=== PATIENT | female | born 1930 | race Caucasian/White ===

== ENCOUNTER 2018-05-15 08:48 | Inpatient (IN) | payer MEDICARE, OTHER ==
[2018-05-15 10:22] LABS: ADD MAN DIFF? NO
[2018-05-15 10:24] LABS: BASOPHIL # 0.1 10^3/ul (0.0-0.1); BASOPHILS % 1.4 % (0.0-2.0); EOSINOPHILS # 0.3 10^3/ul (0.0-0.5); EOSINOPHILS % 6.1 % (0.0-7.0); HEMATOCRIT 38.6 % (37.0-47.0); HEMOGLOBIN 12.4 g/dl (12.0-16.0); LYMPHOCYTES # 1.2 10^3/ul (0.8-2.9); LYMPHOCYTES % 24.4 % (15.0-51.0); MEAN CORPUSCULAR HEMOGLOBIN 31.2 pg (29.0-33.0); MEAN CORPUSCULAR HGB CONC 32.1 g/dl (32.0-37.0); MEAN CORPUSCULAR VOLUME 97.2 fl (82.0-101.0); MEAN PLATELET VOLUME 9.6 fl (7.4-10.4); MONOCYTE # 0.5 10^3/ul (0.3-0.9); MONOCYTES % 9.7 % (0.0-11.0); NEUTROPHIL # 2.9 10^3/ul (1.6-7.5); PLATELET COUNT 216 10^3/UL (140-415); RED BLOOD COUNT 3.97 10^6/ul (4.20-5.40); RED CELL DISTRIBUTION WIDTH 13.9 % (11.5-14.5)
[2018-05-15 10:24] LABS: WHITE BLOOD COUNT 5.1 10^3/ul (4.8-10.8)
[2018-05-15 10:42] LABS: ALANINE AMINOTRANSFERASE 14 IU/L (13-69); ALBUMIN 3.9 g/dl (3.3-4.9); ALBUMIN/GLOBULIN RATIO 1.02; ALKALINE PHOSPHATASE 95 IU/L (42-121); ANION GAP 10 (8-16); ASPARTATE AMINO TRANSFERASE 26 IU/L (15-46); BILIRUBIN,TOTAL 0.4 mg/dl (0.2-1.3); BLOOD UREA NITROGEN 23 mg/dl (7-20); CALCIUM 9.3 mg/dl (8.4-10.2); CARBON DIOXIDE 28 mmol/L (21-31); CHLORIDE 110 mmol/L (97-110); CREATINE KINASE 47 IU/L (23-200); CREATININE 1.19 mg/dl (0.44-1.00); GLUCOSE 100 mg/dl (70-220); POTASSIUM 4.9 mmol/L (3.5-5.1); SODIUM 143 mmol/L (135-144); TOTAL PROTEIN 7.7 g/dl (6.1-8.1)
[2018-05-15 10:55] LABS: B-TYPE NATRIURETIC PEPTIDE 2680 PG/ML (0-450); CK INDEX 1.7; CK-MB 0.81 ng/ml (0.0-2.4)
[2018-05-15 10:57] LABS: TROPONIN-I < 0.012 ng/ml (0.000-0.120)
[2018-05-15] MEDS: CEFTRIAXONE 1 GM/50 ML (PMX) 50 ML IVPB (11:26)
[2018-05-15] MEDS: FUROSEMIDE 40 MG INJ IV ×2 (11:26→18:34)
[2018-05-15] MEDS: ALBUTEROL 0.083% (NEB) 2.5 MG/3 ML AMP NEB (11:35)
[2018-05-15] MEDS: IPRATROPIUM (NEB) 0.5 MG/2.5 ML AMP NEB (11:35)
[2018-05-15] MEDS: AZITHROMYCIN 500MG/NS (PMX) 250 ML IV (12:23)
[2018-05-15] MEDS ORDERED: ONDANSETRON 4 MG INJ IV ×2 (13:00→14:30)
[2018-05-15] MEDS ORDERED: HYDROCODONE/APAP (5/325) TAB PO (14:30)
[2018-05-15] MEDS ORDERED: hydrALAzine 20 MG INJ IV (14:30)
[2018-05-15] MEDS ORDERED: DOCUSATE SODIUM 100 MG CAP PO (14:30)
[2018-05-15] MEDS ORDERED: morphine 2 MG INJ IV (14:30)
[2018-05-15] MEDS ORDERED: NA PHOSPHATE/BIPHOS 133 ML ENEMA PR (14:30)
[2018-05-15] MEDS ORDERED: LORAZEPAM 2 MG INJ IV (14:30)
[2018-05-15] MEDS ORDERED: NACL 0.9% 3 ML SYG IV (14:30)
[2018-05-15] MEDS ORDERED: MAGNESIUM HYDROXIDE 30ML CUP PO (14:30)
[2018-05-15] MEDS ORDERED: NITROGLYCERIN (SL) 0.4 MG TAB SL (14:30)
[2018-05-15] MEDS ORDERED: ALBUTEROL/IPRATROPIUM (NEB) 3 ML AMP HHN (14:30)
[2018-05-15 15:11] LABS: FREE T4 (FREE THYROXINE) 1.48 ng/dl (0.85-1.93)
[2018-05-15] MEDS: LEVOFLOXACIN 750MG/D5W (PMX) 150 ML IVPB (15:48)
[2018-05-15] MEDS: APIXABAN 5 MG TABLET PO (20:54)
[2018-05-15] MEDS: ATORVASTATIN 10 MG TAB PO (20:54)
[2018-05-15] MEDS ORDERED: HEPARIN 5,000 UNIT/0.5 ML VIAL SC (21:00)
[2018-05-16] MEDS: ACETAMINOPHEN 325 MG TAB PO ×2 (01:30→08:49)
[2018-05-16] MEDS: LEVOTHYROXINE 125 MCG TAB PO (06:35)
[2018-05-16] MEDS: FUROSEMIDE 40 MG INJ IV ×2 (06:35→17:31)
[2018-05-16] MEDS: PANTOPRAZOLE (EC) 40 MG TAB PO (06:35)
[2018-05-16 07:19] LABS: ADD MAN DIFF? NO
[2018-05-16 07:23] LABS: WHITE BLOOD COUNT 6.6 10^3/ul (4.8-10.8)
[2018-05-16 07:23] LABS: BASOPHIL # 0.1 10^3/ul (0.0-0.1); BASOPHILS % 0.8 % (0.0-2.0); EOSINOPHILS # 0.4 10^3/ul (0.0-0.5); EOSINOPHILS % 5.7 % (0.0-7.0); HEMATOCRIT 35.6 % (37.0-47.0); HEMOGLOBIN 11.5 g/dl (12.0-16.0); LYMPHOCYTES % 15.2 % (15.0-51.0); MEAN CORPUSCULAR HEMOGLOBIN 31.2 pg (29.0-33.0); MEAN CORPUSCULAR HGB CONC 32.3 g/dl (32.0-37.0); MEAN CORPUSCULAR VOLUME 96.5 fl (82.0-101.0); MEAN PLATELET VOLUME 9.7 fl (7.4-10.4); MONOCYTE # 0.7 10^3/ul (0.3-0.9); MONOCYTES % 10.7 % (0.0-11.0); NEUTROPHIL # 4.5 10^3/ul (1.6-7.5); NEUTROPHILS % 67.3 % (39.0-77.0); PLATELET COUNT 200 10^3/UL (140-415); RED BLOOD COUNT 3.69 10^6/ul (4.20-5.40); RED CELL DISTRIBUTION WIDTH 13.7 % (11.5-14.5)
[2018-05-16 07:42] LABS: CHOL/HDL RATIO 3.6 RATIO; HDL CHOLESTEROL 35 mg/dl (33-92); LDL CHOLESTEROL,CALCULATED 67 mg/dl; TRIGLYCERIDES 128 mg/dl (0-149)
[2018-05-16 07:42] LABS: CHOLESTEROL 128 mg/dl (100-200)
[2018-05-16 07:45] LABS: HEMOGLOBIN A1C 5.8 % (0-5.9)
[2018-05-16 07:51] LABS: ANION GAP 10 (8-16); BLOOD UREA NITROGEN 23 mg/dl (7-20); CALCIUM 8.9 mg/dl (8.4-10.2); CARBON DIOXIDE 29 mmol/L (21-31); CHLORIDE 108 mmol/L (97-110); CREATININE 1.16 mg/dl (0.44-1.00); GLUCOSE 87 mg/dl (70-220); PHOSPHORUS 4.6 mg/dl (2.5-4.9); SODIUM 143 mmol/L (135-144)
[2018-05-16] MEDS: APIXABAN 5 MG TABLET PO ×2 (08:45→21:03)
[2018-05-16] MEDS: ALLOPURINOL 100 MG TAB PO (08:45)
[2018-05-16] MEDS: POTASSIUM CHLORIDE (SR) 20 MEQ TAB PO (08:45)
[2018-05-16] MEDS: CEFTRIAXONE 1 GM/50 ML (PMX) 50 ML IVPB (11:51)
[2018-05-16] MEDS: AZITHROMYCIN 500MG/NS (PMX) 250 ML IVPB (12:36)
[2018-05-16 19:27] LABS: TROPONIN-I < 0.012 ng/ml (0.000-0.120)
[2018-05-16] MEDS: ATORVASTATIN 10 MG TAB PO (21:02)
[2018-05-16] MEDS ORDERED: morphine LIQ (10 MG/5 ML) CUP PO (23:30)
[2018-05-17 01:47] LABS: TROPONIN-I < 0.012 ng/ml (0.000-0.120)
[2018-05-17] MEDS: LEVOTHYROXINE 125 MCG TAB PO (06:50)
[2018-05-17] MEDS: PANTOPRAZOLE (EC) 40 MG TAB PO (06:50)
[2018-05-17] MEDS: FUROSEMIDE 40 MG INJ IV ×2 (06:50→17:06)
[2018-05-17 07:03] LABS: ADD MAN DIFF? NO
[2018-05-17 07:12] LABS: WHITE BLOOD COUNT 6.4 10^3/ul (4.8-10.8)
[2018-05-17 07:12] LABS: BASOPHIL # 0.1 10^3/ul (0.0-0.1); BASOPHILS % 0.9 % (0.0-2.0); EOSINOPHILS # 0.4 10^3/ul (0.0-0.5); EOSINOPHILS % 5.6 % (0.0-7.0); HEMATOCRIT 34.7 % (37.0-47.0); HEMOGLOBIN 11.4 g/dl (12.0-16.0); LYMPHOCYTES # 1.2 10^3/ul (0.8-2.9); MEAN CORPUSCULAR HEMOGLOBIN 31.3 pg (29.0-33.0); MEAN CORPUSCULAR HGB CONC 32.9 g/dl (32.0-37.0); MEAN CORPUSCULAR VOLUME 95.3 fl (82.0-101.0); MEAN PLATELET VOLUME 9.7 fl (7.4-10.4); MONOCYTE # 0.8 10^3/ul (0.3-0.9); MONOCYTES % 12.5 % (0.0-11.0); NEUTROPHILS % 62.7 % (39.0-77.0); PLATELET COUNT 180 10^3/UL (140-415); RED BLOOD COUNT 3.64 10^6/ul (4.20-5.40); RED CELL DISTRIBUTION WIDTH 13.8 % (11.5-14.5)
[2018-05-17 07:44] LABS: ANION GAP 11 (8-16); BLOOD UREA NITROGEN 21 mg/dl (7-20); CALCIUM 8.8 mg/dl (8.4-10.2); CARBON DIOXIDE 27 mmol/L (21-31); CHLORIDE 108 mmol/L (97-110); CREATININE 1.08 mg/dl (0.44-1.00); GLUCOSE 94 mg/dl (70-220); SODIUM 142 mmol/L (135-144)
[2018-05-17] MEDS: APIXABAN 5 MG TABLET PO ×2 (08:09→20:53)
[2018-05-17] MEDS: POTASSIUM CHLORIDE (SR) 20 MEQ TAB PO (08:09)
[2018-05-17] MEDS: ALLOPURINOL 100 MG TAB PO (08:09)
[2018-05-17] MEDS: CEFTRIAXONE 1 GM/50 ML (PMX) 50 ML IVPB (12:03)
[2018-05-17] MEDS: AZITHROMYCIN 500MG/NS (PMX) 250 ML IVPB (12:38)
[2018-05-17] MEDS: ATORVASTATIN 10 MG TAB PO (20:53)
[2018-05-18] MEDS: FUROSEMIDE 40 MG INJ IV ×2 (05:51→18:04)
[2018-05-18] MEDS: LEVOTHYROXINE 125 MCG TAB PO (05:54)
[2018-05-18 06:22] LABS: ADD MAN DIFF? NO
[2018-05-18 06:30] LABS: BASOPHIL # 0.1 10^3/ul (0.0-0.1); EOSINOPHILS # 0.4 10^3/ul (0.0-0.5); EOSINOPHILS % 6.5 % (0.0-7.0); HEMATOCRIT 35.9 % (37.0-47.0); HEMOGLOBIN 11.8 g/dl (12.0-16.0); LYMPHOCYTES # 1.4 10^3/ul (0.8-2.9); LYMPHOCYTES % 22.9 % (15.0-51.0); MEAN CORPUSCULAR HEMOGLOBIN 31.3 pg (29.0-33.0); MEAN CORPUSCULAR HGB CONC 32.9 g/dl (32.0-37.0); MEAN CORPUSCULAR VOLUME 95.2 fl (82.0-101.0); MEAN PLATELET VOLUME 9.5 fl (7.4-10.4); MONOCYTE # 0.8 10^3/ul (0.3-0.9); MONOCYTES % 12.5 % (0.0-11.0); NEUTROPHIL # 3.5 10^3/ul (1.6-7.5); NEUTROPHILS % 56.8 % (39.0-77.0); PLATELET COUNT 188 10^3/UL (140-415); RED BLOOD COUNT 3.77 10^6/ul (4.20-5.40); RED CELL DISTRIBUTION WIDTH 13.5 % (11.5-14.5)
[2018-05-18 06:30] LABS: WHITE BLOOD COUNT 6.2 10^3/ul (4.8-10.8)
[2018-05-18 06:56] LABS: ANION GAP 11 (8-16); BLOOD UREA NITROGEN 20 mg/dl (7-20); CALCIUM 9.1 mg/dl (8.4-10.2); CARBON DIOXIDE 27 mmol/L (21-31); CHLORIDE 108 mmol/L (97-110); CREATININE 0.96 mg/dl (0.44-1.00); GLUCOSE 100 mg/dl (70-220); POTASSIUM 4.1 mmol/L (3.5-5.1); SODIUM 142 mmol/L (135-144)
[2018-05-18] MEDS: ALLOPURINOL 100 MG TAB PO (08:08)
[2018-05-18] MEDS: APIXABAN 5 MG TABLET PO ×2 (08:08→21:11)
[2018-05-18] MEDS: PANTOPRAZOLE (EC) 40 MG TAB PO (08:08)
[2018-05-18] MEDS: POTASSIUM CHLORIDE (SR) 20 MEQ TAB PO (08:09)
[2018-05-18] MEDS: CEFTRIAXONE 1 GM/50 ML (PMX) 50 ML IVPB (11:46)
[2018-05-18] MEDS: AZITHROMYCIN 500MG/NS (PMX) 250 ML IVPB (12:53)
[2018-05-18] MEDS: ATORVASTATIN 10 MG TAB PO (21:11)
[2018-05-19] MEDS: FUROSEMIDE 40 MG INJ IV ×2 (05:51→17:05)
[2018-05-19] MEDS: LEVOTHYROXINE 125 MCG TAB PO (06:03)
[2018-05-19 07:03] LABS: ADD MAN DIFF? NO
[2018-05-19 07:18] LABS: WHITE BLOOD COUNT 6.5 10^3/ul (4.8-10.8)
[2018-05-19 07:18] LABS: BASOPHIL # 0.1 10^3/ul (0.0-0.1); BASOPHILS % 1.2 % (0.0-2.0); EOSINOPHILS # 0.4 10^3/ul (0.0-0.5); EOSINOPHILS % 6.3 % (0.0-7.0); HEMATOCRIT 38.7 % (37.0-47.0); HEMOGLOBIN 12.8 g/dl (12.0-16.0); LYMPHOCYTES # 1.5 10^3/ul (0.8-2.9); LYMPHOCYTES % 22.8 % (15.0-51.0); MEAN CORPUSCULAR HEMOGLOBIN 31.4 pg (29.0-33.0); MEAN CORPUSCULAR HGB CONC 33.1 g/dl (32.0-37.0); MEAN CORPUSCULAR VOLUME 94.9 fl (82.0-101.0); MEAN PLATELET VOLUME 9.9 fl (7.4-10.4); MONOCYTE # 0.8 10^3/ul (0.3-0.9); MONOCYTES % 11.8 % (0.0-11.0); NEUTROPHIL # 3.8 10^3/ul (1.6-7.5); NEUTROPHILS % 57.6 % (39.0-77.0); PLATELET COUNT 214 10^3/UL (140-415); RED BLOOD COUNT 4.08 10^6/ul (4.20-5.40); RED CELL DISTRIBUTION WIDTH 13.7 % (11.5-14.5)
[2018-05-19 07:37] LABS: ANION GAP 14 (8-16); BLOOD UREA NITROGEN 24 mg/dl (7-20); CALCIUM 8.4 mg/dl (8.4-10.2); CARBON DIOXIDE 26 mmol/L (21-31); CHLORIDE 106 mmol/L (97-110); GLUCOSE 102 mg/dl (70-220); POTASSIUM 4.1 mmol/L (3.5-5.1); SODIUM 142 mmol/L (135-144)
[2018-05-19] MEDS: POTASSIUM CHLORIDE (SR) 20 MEQ TAB PO (08:22)
[2018-05-19] MEDS: APIXABAN 5 MG TABLET PO (08:22)
[2018-05-19] MEDS: ALLOPURINOL 100 MG TAB PO (08:22)
[2018-05-19] MEDS: PANTOPRAZOLE (EC) 40 MG TAB PO (08:23)
[2018-05-19] MEDS: CEFTRIAXONE 1 GM/50 ML (PMX) 50 ML IVPB (10:48)
[2018-05-19] MEDS: AZITHROMYCIN 500MG/NS (PMX) 250 ML IVPB (11:43)
[2018-05-19] MEDS: FUROSEMIDE 20 MG TAB PO (18:00)
[2018-05-20] MEDS ORDERED: THIAMINE 100 MG TAB PO (09:00)
[2018-05-20] MEDS ORDERED: AZITHROMYCIN 250 MG TAB PO (12:00)
== END 2018-05-19 18:43 | disposition home or self-care (01) | DRG 291 ==
LOC: E/R 08:48 → TEL 12:56
DX: I50.33 Acute on chronic diastolic (congestive) heart failure (principal); J18.9 Pneumonia, unspecified organism; I11.0 Hypertensive heart disease with heart failure; I48.2 Chronic atrial fibrillation; Z95.2 Presence of prosthetic heart valve; J20.9 Acute bronchitis, unspecified; E78.5 Hyperlipidemia, unspecified; E03.9 Hypothyroidism, unspecified; Z79.02 Long term (current) use of antithrombotics/antiplatelets
CPT/HCPCS: 36415; 71045; 71046; 80048; 80053; 80061; 82550; 82553; 83036; 83605; 83735; 83880; 84100; 84439; 84443; 84484; 85025; 87040; 87086; 92610; 93005; 93306; 93308; 94664; 96374; 96375; 97116; 97161; 97167; 97530; 99285-25

== ENCOUNTER → 2018-06-14 | Outpatient (CLI) | payer MEDICARE, OTHER | END | disposition home or self-care (01) | LOC: RAD 09:42 | DX: I50.9 Heart failure, unspecified (principal) | CPT/HCPCS: 71046 ==